=== PATIENT | male | born 1980 | race Two or more races ===

== ENCOUNTER 2016-11-12 13:09 | Inpatient (IN) | payer MEDICAID ==
[2016-11-12] VITALS (7 sets, daily range): BP systolic 106–131; BP diastolic 55–88
[~2016-11-12] VITALS: Ht 165.1 cm; Wt 59.4 kg
[2016-11-12] MEDS ORDERED: TIVICAY50 MG ORAL (13:10)
[2016-11-12] MEDS ORDERED: AZITHROMYC200 MG/5 M ORAL (13:10)
[2016-11-12] MEDS ORDERED: ATOVAQUONE-PRO1 EAC1 ORAL (13:10)
--- NOTE | 2016-11-12 13:31 | Emergency Room Report ---
History of Present Illness General Chief Complaint: Gastrointestinal Bleed Source: Patient Present Illness HPI [id number] BIBEMS for abd pain and dark stools for 2 weeks. Pain with bowel movement. Now constipated. Denies nausea/vomiting, diarrhea, fever/chills Not taking NSAIDS [facility] X[facility] for multiple day admission Had colonoscopy and endoscopy. States had some kind of procedure/biopsy to rectum. Doesnt have result. Also had CTAP, doesnt know result Has suprapubic pain. Unable to urinate, only "small amount comes out." Has HIV/AIDS. On Azitrho and Atovaquone PPx. Likely severely immune compromised. Allergies: Coded Allergies: No Known Allergies (Unverified , 11/12/16) Patient History Past Medical History: HIV Past Surgical History: other - Rectal biopsy/surgery? Pertinent Family History: none Social History: Denies: smoking, alcohol use, drug use Immunizations: UTD Reviewed Nursing Documentation: PMH: Agreed, PSxH: Agreed Review of Systems All Other Systems: negative except mentioned in HPI Physical Exam Vital Signs Date Time Temp Pulse Resp B/P (MAP) Pulse Ox O2 Delivery O2 Flow Rate FiO2 11/12/16 13:06 97.5 116 18 119/97 Room Air Sp02 EP Interpretation: reviewed, normal General Appearance: normal inspection, well appearing, no apparent distress, alert, GCS 15, non-toxic Head: normocephalic, atraumatic Eyes: bilateral eye PERRL, bilateral eye EOMI ENT: normal ENT inspection, hearing grossly normal, normal voice Neck: normal inspection, full range of motion, supple, no bony tend Respiratory: normal inspection, lungs clear, normal breath sounds, no respiratory distress, no retraction, no wheezing Cardiovascular #1: regular rate, rhythm, no edema Gastrointestinal: normal inspection, normal bowel sounds, non tender, soft, no guarding, no hernia Rectal: other - Anus/rectum is very dilated, edematous with stool seen inside. No active hemorrhage Genitourinary: no CVA tenderness, other - Bedside sono shows severely distended bladder Musculoskeletal: normal inspection, back normal, normal range of motion, Tommy' s Sign negative Neurologic: normal inspection, alert, oriented x3, responsive, peer health promoter III-XII nml as tested, motor strength/tone normal, speech normal Psychiatric: normal inspection, judgement/insight normal, mood/affect normal Skin: normal inspection, normal color, no rash Medical Decision Making Diagnostic Impression: Primary Impression: Gastrointestinal hemorrhage Qualified Codes: K92.1 - Melena Additional Impressions: Urinary retention Urinary (tract) obstruction Suprapubic abdominal pain Constipation Qualified Codes: K59.00 - Constipation, unspecified HIV disease ER Course Distended bladder likely d/t rectal impactation/dilation No active hemorrhage VS with tachycardia Likely AIDS given the PPx meds he is on Labs: H&H stable. CMP and Abd CT pending at time of endorsement to Dr Warren for ultimate disposition after review of imaging and consult with GI/Gen Surg. EKG Diagnostic Results Rate: normal Rhythm: NSR ST Segments: no acute changes Rhythm Strip Diag. Results EP Interpretation: yes Rate: 95 Rhythm: NSR, no PVC's, no ectopy Chest X-Ray Diagnostic Results Chest X-Ray Diagnostic Results : Chest X-Ray Ordered: Yes # of Views/Limited/Complete: 1 View Indication: Other - GI bleed EP Interpretation: Yes Interpretation: no consolidation, no effusion, no pneumothorax, no acute cardiopulmonary disease Impression: No acute disease Interpreting ER Provider: Dr Obdulio Rodriguez MD Last Vital Signs Date Time Temp Pulse Resp B/P (MAP) Pulse Ox O2 Delivery O2 Flow Rate FiO2 11/12/16 13:06 97.5 116 18 119/97 Room Air Status: improved Disposition: ADMITTED INPATIENT Condition: Serious OBDULIO RODRIGUEZ M.D. Nov 12, 2016 13:31
[2016-11-12 13:51] LABS: BASOPHILS % (AUTO) 1.4 % (0.0-2.0); EOSINOPHILS % (AUTO) 5.2 % (0.0-3.0); LYMPHOCYTES % (AUTO) 38.6 % (20.0-45.0); MEAN CORPUSCULAR HEMOGLOBIN 26.3 PG (27.0-31.0); MEAN CORPUSCULAR HGB CONC 30.7 G/DL (32.0-36.0); MEAN CORPUSCULAR VOLUME 86 FL (80-99); MEAN PLATELET VOLUME 4.9 FL (6.5-10.1); MONOCYTES % (AUTO) 5.5 % (1.0-10.0); NEUTROPHILS % (AUTO) 49.3 % (45.0-75.0); PLATELET COUNT 563 K/UL (150-450); RED BLOOD COUNT 3.68 M/UL (4.70-6.10); RED CELL DISTRIBUTION WIDTH 12.5 % (11.6-14.8); WHITE BLOOD COUNT 7.6 K/UL (4.8-10.8)
[2016-11-12 13:58] LABS: INR 0.9 (0.9-1.1); PROTHROMBIN TIME 9.6 SEC (9.30-11.50)
[2016-11-12 13:59] LABS: ALANINE AMINOTRANSFERASE 14 U/L (3-41); ALBUMIN/GLOBULIN RATIO 0.8 (1.0-2.7); ANION GAP 15 (5-15); ASPARTATE AMINO TRANSFERASE 24 U/L (5-40); CALCIUM 9.6 mg/dL (8.6-10.2); CARBON DIOXIDE 18 mEQ/L (20-30); CHLORIDE 102 mEQ/L (98-107); CREATININE 1.3 mg/dL (0.7-1.2); GLOMERULAR FILTRATION RATE > 60 mL/min (>60); HEMOLYSIS 19; LIPASE 83 U/L (< 60); POTASSIUM 4.2 mEQ/L (3.4-4.9); SODIUM 135 mEQ/L (135-145); TOTAL PROTEIN 8.7 g/dL (6.6-8.7)
[2016-11-12 14:26] LABS: APPEARANCE,URINE CLEAR; KETONES,URINE NEGATIVE (NEGATIVE); LEUKOCYTE ESTERASE ,URINE NEGATIVE (NEGATIVE); NITRITE,URINE NEGATIVE (NEGATIVE); PH,URINE 6 (4.5-8.0); PROTEIN,URINE 2+ (NEGATIVE); UROBILINOGEN,URINE NORMAL MG/DL (0.0-1.0)
[2016-11-12 14:34] LABS: BACTERIA,URINE OCCASIONAL /HPF; RBC,URINE 0-2 /HPF (0 - 0); SQUAMOUS EPITHELIAL CELL,UR OCCASIONAL /LPF (NONE/OCC); WBC,URINE 0-2 /HPF (0 - 0)
[2016-11-12] MEDS ORDERED: Morphine Sulfate 2mg/ml Inj IVP ONE ×2 (15:15→20:45)
[2016-11-12] MEDS ORDERED: Ketorolac 30mg Inj IV ONE (15:15)
[2016-11-12] MEDS ORDERED: DOXYCYCLINE MO100 MG ORAL (20:29)
[2016-11-12] MEDS ORDERED: TRUVADA 200 MG1 EAC1 ORAL (20:29)
[2016-11-12] MEDS ORDERED: DESCOVY 200-251 EACH PO (20:29)
[2016-11-12] MEDS ORDERED: Zolpidem 5mg tab ORAL PRN (21:45)
[2016-11-12] MEDS ORDERED: HYDROmorphone 1mg/ml Carpuject IVP PRN (21:45)
[2016-11-12] MEDS: Miralax 17gm pkt ORAL SCH (22:04)
[2016-11-12] MEDS: D5 1/2NS 1,000 ML IV SCH (22:07)
[2016-11-12] MEDS: Heparin 5000 units/ml inj SUBQ SCH (22:07)
[2016-11-13 03:55] VITALS: BP 117/73
[2016-11-13 07:50] VITALS: BP 111/65
[2016-11-13 07:50] LABS: BASOPHILS % (AUTO) 2.5 % (0.0-2.0); EOSINOPHILS % (AUTO) 5.3 % (0.0-3.0); LYMPHOCYTES % (AUTO) 30.7 % (20.0-45.0); MEAN CORPUSCULAR HEMOGLOBIN 27.2 PG (27.0-31.0); MEAN CORPUSCULAR HGB CONC 31.3 G/DL (32.0-36.0); MEAN CORPUSCULAR VOLUME 87 FL (80-99); MONOCYTES % (AUTO) 8.1 % (1.0-10.0); NEUTROPHILS % (AUTO) 53.4 % (45.0-75.0); PLATELET COUNT 502 K/UL (150-450); RED BLOOD COUNT 3.16 M/UL (4.70-6.10); RED CELL DISTRIBUTION WIDTH 12.6 % (11.6-14.8); WHITE BLOOD COUNT 9.4 K/UL (4.8-10.8)
[2016-11-13 07:54] LABS: CALCIUM 9.4 mg/dL (8.6-10.2); CREATININE 1.5 mg/dL (0.7-1.2); GLOMERULAR FILTRATION RATE 53.6 mL/min (>60); POTASSIUM 4.3 mEQ/L (3.4-4.9)
[2016-11-13] MEDS: Heparin 5000 units/ml inj SUBQ SCH (09:00)
[2016-11-13] MEDS: Miralax 17gm pkt ORAL SCH ×3 (09:57→17:20)
[2016-11-13 11:38] VITALS: BP 102/64
[2016-11-13] MEDS: D5 1/2NS 1,000 ML IV SCH ×2 (11:50→20:41)
[2016-11-13] MEDS ORDERED: Dolutegravir Sodium 50mg tab ORAL SCH (12:30)
--- NOTE | 2016-11-13 12:30 | History & Physical ---
History and Physical History & Physicial HP dictated # [id number] SARAN LEW Nov 13, 2016 12:30
[2016-11-13 15:23] VITALS: BP 113/65
[2016-11-13 19:57] VITALS: BP 109/61
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
[2016-11-14 00:14] VITALS: BP 112/57
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
[2016-11-14 04:04] VITALS: BP 108/62
[2016-11-14 07:31] LABS: BASOPHILS % (AUTO) 1.4 % (0.0-2.0); EOSINOPHILS % (AUTO) 4.5 % (0.0-3.0); LYMPHOCYTES % (AUTO) 27.7 % (20.0-45.0); MEAN CORPUSCULAR HEMOGLOBIN 28.8 PG (27.0-31.0); MEAN CORPUSCULAR HGB CONC 32.8 G/DL (32.0-36.0); MEAN CORPUSCULAR VOLUME 88 FL (80-99); MEAN PLATELET VOLUME 5.2 FL (6.5-10.1); MONOCYTES % (AUTO) 6.3 % (1.0-10.0); NEUTROPHILS % (AUTO) 60.1 % (45.0-75.0); PLATELET COUNT 428 K/UL (150-450); RED BLOOD COUNT 2.82 M/UL (4.70-6.10); RED CELL DISTRIBUTION WIDTH 12.9 % (11.6-14.8); WHITE BLOOD COUNT 8.1 K/UL (4.8-10.8)
[2016-11-14 08:00] VITALS: BP 103/60
[2016-11-14] MEDS: Miralax 17gm pkt ORAL SCH ×3 (08:20→18:40)
--- NOTE | 2016-11-14 09:46 | General Progress Note ---
Assessment/Plan Problem List: (1) Gastrointestinal hemorrhage ICD Codes: K92.2 - Gastrointestinal hemorrhage, unspecified SNOMED: 57064046 Qualifiers: Qualified Codes: K92.1 - Melena (2) HIV disease ICD Codes: B20 - Human immunodeficiency virus [HIV] disease SNOMED: 35298816 (3) Suprapubic abdominal pain ICD Codes: R10.2 - Pelvic and perineal pain SNOMED: 200370788 (4) Colonic neoplasm ICD Codes: D49.0 - Neoplasm of unspecified behavior of digestive system SNOMED: 472946049 Assessment/Plan transfuse follow labs Oncology consult Discussed with RN Subjective Allergies: Coded Allergies: No Known Allergies (Unverified , 11/12/16) Subjective no more bleed today Objective Last 24 Hour Vital Signs Date Time Temp Pulse Resp B/P (MAP) Pulse Ox O2 Delivery O2 Flow Rate FiO2 11/14/16 08:00 97.5 93 20 103/60 96 Room Air 11/14/16 04:44 98.6 11/14/16 04:04 98.6 90 20 108/62 98 Room Air 11/14/16 04:00 97 11/14/16 00:14 98.4 95 19 112/57 98 Room Air 11/14/16 00:00 83 11/13/16 20:00 88 11/13/16 19:57 98.2 85 20 109/61 96 Room Air 11/13/16 16:00 87 11/13/16 15:23 97.3 87 20 113/65 98 Room Air 11/13/16 12:00 96 11/13/16 11:38 97.7 80 20 102/64 95 Room Air Laboratory Tests 11/14/16 05:05: White Blood Count 8.1, Red Blood Count 2.82L, Hemoglobin 8.1L, Hematocrit 24.8L , Mean Corpuscular Volume 88, Mean Corpuscular Hemoglobin 28.8, Mean Corpuscular Hemoglobin Concent 32.8, Red Cell Distribution Width 12.9, Platelet Count 428, Mean Platelet Volume 5.2L, Neutrophils (%) (Auto) 60.1, Lymphocytes ( %) (Auto) 27.7, Monocytes (%) (Auto) 6.3, Eosinophils (%) (Auto) 4.5H, Basophils (%) (Auto) 1.4 Height (Feet): 5 Height (Inches): 6.00 Weight (Pounds): 132 Cardiovascular: normal rate Respiratory/Chest: lungs clear Abdomen: soft SARAN LEW Nov 14, 2016 09:46
[2016-11-14] MEDS ORDERED: Azithromycin 600mg Tab ORAL SCH (11:00)
[2016-11-14] MEDS: Bactrim SS Tab ORAL SCH (11:28)
[2016-11-14 11:51] VITALS: BP 114/64
[2016-11-14] MEDS: D5 1/2NS 1,000 ML IV SCH (15:12)
[2016-11-14 16:00] VITALS: BP 114/64
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
[2016-11-14] MEDS ORDERED: Dolutegravir Sodium 50mg tab ORAL ONE (18:00)
--- NOTE | 2016-11-14 19:44 | Cardiology Report ---
APPROVED REPORT EKG Measurement Heart [id number] MT 130P9 [id number] Normal sinus rhythm Minimal voltage criteria for LVH, may be normal variant Cannot rule out Anterior infarct, age undetermined Abnormal ECG
[2016-11-14 20:00] VITALS: BP 98/68
[2016-11-15] VITALS: BP 112/61
[2016-11-15] MEDS: D5 1/2NS 1,000 ML IV SCH ×2 (02:43→13:37)
[2016-11-15 04:00] VITALS: BP 107/67
[2016-11-15] MEDS: Bactrim SS Tab ORAL SCH (08:14)
[2016-11-15] MEDS: Miralax 17gm pkt ORAL SCH ×3 (08:14→16:53)
[2016-11-15 08:16] VITALS: BP 117/71
[2016-11-15] MEDS ORDERED: NS 275ml ONE (10:53)
[2016-11-15] MEDS ORDERED: Tubing IV Blood Pump IV ONE (10:53)
[2016-11-15] MEDS ORDERED: D5 1/2NS 1000ml IV ONE (10:53)
[2016-11-15 11:13] LABS: EOSINOPHILS % (AUTO) 3.9 % (0.0-3.0); LYMPHOCYTES % (AUTO) 28.9 % (20.0-45.0); MEAN CORPUSCULAR HEMOGLOBIN 25.9 PG (27.0-31.0); MEAN CORPUSCULAR HGB CONC 30.4 G/DL (32.0-36.0); MEAN CORPUSCULAR VOLUME 85 FL (80-99); MEAN PLATELET VOLUME 4.7 FL (6.5-10.1); MONOCYTES % (AUTO) 8.2 % (1.0-10.0); PLATELET COUNT 480 K/UL (150-450); RED BLOOD COUNT 3.71 M/UL (4.70-6.10); RED CELL DISTRIBUTION WIDTH 13.1 % (11.6-14.8); WHITE BLOOD COUNT 7.7 K/UL (4.8-10.8)
--- NOTE | 2016-11-15 11:48 | Infectious Diseases Prog Note ---
Assessment/Plan Assessment/Plan A; HIV, AIDS Lower GI bleeding Rectal tumor, likely lymphoma Anemia Acute renal failure P; continue HAART & Bactrim & Zithromax prophylaxis Plan by oncologist Subjective ROS Limited/Unobtainable: Yes Allergies: Coded Allergies: No Known Allergies (Unverified , 11/12/16) Objective Vital Signs Last 24 Hour Vital Signs Date Time Temp Pulse Resp B/P (MAP) Pulse Ox O2 Delivery O2 Flow Rate FiO2 11/15/16 11:25 96.9 11/15/16 08:16 96.9 72 20 117/71 98 Room Air 11/15/16 08:00 95 11/15/16 04:00 97.7 96 20 107/67 95 Room Air 96 11/15/16 04:00 95 11/15/16 00:00 96.0 92 20 112/61 95 Room Air 11/15/16 00:00 90 11/14/16 20:00 97.0 88 22 98/68 94 Room Air 11/14/16 20:00 95 11/14/16 16:00 83 11/14/16 16:00 97.5 89 20 114/64 96 Room Air 11/14/16 12:00 94 11/14/16 11:51 97.3 95 21 114/64 97 Room Air Height (Feet): 5 Height (Inches): 6.00 Weight (Pounds): 132 General Appearance: no acute distress HEENT: mucous membranes moist Respiratory/Chest: lungs clear Cardiovascular: normal rate Abdomen: soft, non tender Extremities: no edema Neurologic/Psychiatric: other - sleeping Microbiology Date/Time Source Procedure Growth Status 11/12/16 20:10 Nasal Nares MRSA Culture - Final NO METHICILLIN RESISTANT STAPH AUREUS... Complete Laboratory Tests Test 11/15/16 11:05 White Blood Count 7.7 K/UL (4.8-10.8) Red Blood Count 3.71 M/UL (4.70-6.10) L Hemoglobin 9.6 G/DL (14.2-18.0) L Hematocrit 31.6 % (42.0-52.0) L Mean Corpuscular Volume 85 FL (80-99) Mean Corpuscular Hemoglobin 25.9 PG (27.0-31.0) L Mean Corpuscular Hemoglobin Concent 30.4 G/DL (32.0-36.0) L Red Cell Distribution Width 13.1 % (11.6-14.8) Platelet Count 480 K/UL (150-450) H Mean Platelet Volume 4.7 FL (6.5-10.1) L Neutrophils (%) (Auto) 58.0 % (45.0-75.0) Lymphocytes (%) (Auto) 28.9 % (20.0-45.0) Monocytes (%) (Auto) 8.2 % (1.0-10.0) Eosinophils (%) (Auto) 3.9 % (0.0-3.0) H Basophils (%) (Auto) 1.0 % (0.0-2.0) Sodium Level Pending Potassium Level Pending Chloride Level Pending Carbon Dioxide Level Pending Blood Urea Nitrogen Pending Creatinine Pending Estimat Glomerular Filtration Rate Pending Glucose Level Pending Calcium Level Pending Current Medications Medications (Trade) Dose Ordered Sig/Elliot Route PRN Reason Start Time Stop Time Status Last Admin Dose Admin Azithromycin (Zithromax) 1,200 mg ONCE A WEEK ORAL 11/14/16 11:00 11/21/16 10:59 11/14/16 12:03 Dextrose (Dextrose 50%) STAT PRN IV Hypoglycemia 11/12/16 21:45 12/12/16 21:44 Dextrose/Sodium Chloride 1,000 ml @ 75 mls/hr [id number] IV 11/12/16 22:35 12/12/16 22:34 11/14/16 15:12 Diphenhydramine HCl (Benadryl) 25 mg Q6H PRN ORAL Itching/Pruritis 11/12/16 21:45 12/12/16 21:44 Dolutegravir Sodium (Tivicay) 50 mg DAILY ORAL 11/13/16 12:30 12/13/16 12:29 UNV Emtricitabine/ Tenofovir (Truvada 200/ 300mg) 1 tab DAILY ORAL 11/13/16 12:30 12/13/16 12:29 UNV Hydromorphone HCl (Dilaudid) 1 mg EVERY 3 HOURS PRN IVP Moderate Pain (Pain Scale 4-6) 11/12/16 21:45 11/19/16 21:44 Hydromorphone HCl (Dilaudid) 2 mg EVERY 3 HOURS PRN IVP Severe Pain (Pain Scale 7-10) 11/12/16 21:45 11/19/16 21:44 11/15/16 10:52 Ondansetron HCl (Zofran) 4 mg Q6H PRN IVP Nausea & Vomiting 11/12/16 21:45 12/12/16 21:44 11/15/16 10:52 Polyethylene Glycol (Miralax) 17 gm TID ORAL 11/12/16 21:45 12/12/16 21:44 11/15/16 08:14 Ranitidine HCl (Zantac) 150 mg TWICE A DAY ORAL 11/12/16 21:45 12/12/16 21:44 11/15/16 08:13 Trimethoprim/ Sulfamethoxazole (Bactrim Single Strength) 1 ea DAILY ORAL 11/14/16 11:00 11/21/16 10:59 11/15/16 08:14 Zolpidem Tartrate (Ambien) 5 mg HSPRN PRN ORAL Insomnia 11/12/16 21:45 11/19/16 21:44 MILLIE LEW Nov 15, 2016 11:48
[2016-11-15 11:49] LABS: ANION GAP 11 (5-15); CARBON DIOXIDE 26 mEQ/L (20-30); CHLORIDE 100 mEQ/L (98-107); CREATININE 1.3 mg/dL (0.7-1.2); GLOMERULAR FILTRATION RATE > 60 mL/min (>60); HEMOLYSIS 1; POTASSIUM 3.8 mEQ/L (3.4-4.9); SODIUM 137 mEQ/L (135-145)
[2016-11-15 12:00] VITALS: BP 112/66
--- NOTE | 2016-11-15 12:40 | General Progress Note ---
Assessment/Plan Problem List: (1) Gastrointestinal hemorrhage ICD Codes: K92.2 - Gastrointestinal hemorrhage, unspecified SNOMED: [id number] Qualifiers: Qualified Codes: K92.1 - Melena (2) HIV disease ICD Codes: B20 - Human immunodeficiency virus [HIV] disease SNOMED: 77127275 (3) Suprapubic abdominal pain ICD Codes: R10.2 - Pelvic and perineal pain SNOMED: 993976449 (4) Colonic neoplasm ICD Codes: D49.0 - Neoplasm of unspecified behavior of digestive system SNOMED: 187324875 Assessment/Plan transfuse PRN follow labs Oncology consult Hopefully DC in AM Subjective Allergies: Coded Allergies: No Known Allergies (Unverified , 11/12/16) Subjective In NAD Objective Last 24 Hour Vital Signs Date Time Temp Pulse Resp B/P (MAP) Pulse Ox O2 Delivery O2 Flow Rate FiO2 11/15/16 11:25 96.9 11/15/16 08:16 96.9 72 20 117/71 98 Room Air 11/15/16 08:00 95 11/15/16 04:00 97.7 96 20 107/67 95 Room Air 96 11/15/16 04:00 95 11/15/16 00:00 96.0 92 20 112/61 95 Room Air 11/15/16 00:00 90 11/14/16 20:00 97.0 88 22 98/68 94 Room Air 11/14/16 20:00 95 11/14/16 16:00 83 11/14/16 16:00 97.5 89 20 114/64 96 Room Air Intake and Output 11/15/16 11/16/16 19:00 07:00 Intake Total 300 ml Balance 300 ml IV Total 300 ml Laboratory Tests 11/15/16 11:05: White Blood Count 7.7, Red Blood Count 3.71L, Hemoglobin 9.6L, Hematocrit 31.6L , Mean Corpuscular Volume 85, Mean Corpuscular Hemoglobin 25.9L, Mean Corpuscular Hemoglobin Concent 30.4L, Red Cell Distribution Width 13.1, Platelet Count 480H, Mean Platelet Volume 4.7L, Neutrophils (%) (Auto) 58.0, Lymphocytes (%) (Auto) 28.9, Monocytes (%) (Auto) 8.2, Eosinophils (%) (Auto) 3.9H, Basophils (%) (Auto) 1.0, Sodium Level 137, Potassium Level 3.8, Chloride Level 100, Carbon Dioxide Level 26, Anion Gap 11, Blood Urea Nitrogen 11, Creatinine 1.3H, Estimat Glomerular Filtration Rate > 60, Glucose Level 109H, Calcium Level 9.0 Height (Feet): 5 Height (Inches): 6.00 Weight (Pounds): 132 Cardiovascular: normal rate Respiratory/Chest: lungs clear Abdomen: soft SARAN LEW Nov 15, 2016 12:40
[2016-11-15 16:53] VITALS: BP 110/60
[2016-11-15 19:08] LABS: BASOPHILS % (AUTO) 1.1 % (0.0-2.0); EOSINOPHILS % (AUTO) 4.7 % (0.0-3.0); LYMPHOCYTES % (AUTO) 31.6 % (20.0-45.0); MEAN CORPUSCULAR HEMOGLOBIN 27.7 PG (27.0-31.0); MEAN CORPUSCULAR HGB CONC 32.4 G/DL (32.0-36.0); MEAN CORPUSCULAR VOLUME 86 FL (80-99); MEAN PLATELET VOLUME 4.8 FL (6.5-10.1); MONOCYTES % (AUTO) 7.7 % (1.0-10.0); NEUTROPHILS % (AUTO) 54.9 % (45.0-75.0); PLATELET COUNT 434 K/UL (150-450); RED CELL DISTRIBUTION WIDTH 13.4 % (11.6-14.8)
[2016-11-15 20:00] VITALS: BP 116/67
[2016-11-15] MEDS ORDERED: Magnesium Citrate Liq Btl ORAL ONE (20:30)
[2016-11-15] MEDS ORDERED: Dolutegravir Sodium 50mg tab ORAL ONE (23:00)
[2016-11-16] VITALS: BP 133/74
[2016-11-16 04:00] VITALS: BP 111/60
[2016-11-16] MEDS: D5 1/2NS 1,000 ML IV SCH ×3 (06:43→07:01)
[2016-11-16 08:00] VITALS: BP 130/82
[2016-11-16 08:27] LABS: BASOPHILS % (AUTO) 0.8 % (0.0-2.0); EOSINOPHILS % (AUTO) 2.3 % (0.0-3.0); MEAN CORPUSCULAR HEMOGLOBIN 27.3 PG (27.0-31.0); MEAN CORPUSCULAR HGB CONC 31.9 G/DL (32.0-36.0); MEAN CORPUSCULAR VOLUME 86 FL (80-99); MEAN PLATELET VOLUME 5.3 FL (6.5-10.1); MONOCYTES % (AUTO) 5.4 % (1.0-10.0); NEUTROPHILS % (AUTO) 67.5 % (45.0-75.0); PLATELET COUNT 460 K/UL (150-450); RED BLOOD COUNT 3.54 M/UL (4.70-6.10); RED CELL DISTRIBUTION WIDTH 13.1 % (11.6-14.8); WHITE BLOOD COUNT 9.6 K/UL (4.8-10.8)
[2016-11-16 08:58] LABS: CALCIUM 9.6 mg/dL (8.6-10.2); CREATININE 1.6 mg/dL (0.7-1.2); GLOMERULAR FILTRATION RATE 49.7 mL/min (>60); POTASSIUM 4.3 mEQ/L (3.4-4.9)
[2016-11-16] MEDS: Bactrim SS Tab ORAL SCH (09:00)
[2016-11-16] MEDS: Miralax 17gm pkt ORAL SCH (09:00)
[2016-11-16] MEDS ORDERED: D5 1/2NS 1000ml IV ONE (10:48)
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
--- NOTE | 2016-11-17 17:15 | Discharge Summary ---
Discharge Summary Hospital Course Date of Admission Nov 12, 2016 at 13:51 Date of Discharge Nov 16, 2016 at 10:49 Admitting Diagnosis LOWER G.I.BLEED HPI Ronny Holland is a 36 year old male who was admitted on Nov 12, 2016 at 13:51 for Lower Gastrointestinal Bleed Hospital Course [id number] Discharge Discharge Disposition Patient left AMA Discharge Diagnoses: Carol Mcgarry NP Nov 17, 2016 17:15
--- NOTE | 2016-11-18 00:30 | Discharge Summary 2 SIG ---
DATE OF ADMISSION: 11/12/2016 DATE OF DISCHARGE: 11/16/2016 CONSULTANTS: 1. Pawel Summers M.D. 2. Christopher López M.D. 3. Eli Colbert M.D. BRIEF HOSPITAL COURSE: The patient is a 36-year-old male with history of HIV for the past 14 years, presented to ED complaining of abdominal pain and also blood in stools for a couple of weeks. He had a CAT scan of the abdomen at [facility]. CT scan done, showed 8 x 7 x 19 homogenous soft tissue density in the presacral region, which is complex and appears to involve the rectum. Soft tissue density extends superiorly into the abdominal retroperitoneum, which is contiguous with large retroperitoneal lymph nodes, some of which encased the distal ureter, inferior vena cava, and common iliac vessel, left more than right. Soft tissue density also extends left anterolaterally and is contiguous with left internal and external iliac lymphadenopathy. Findings were consistent with a neoplastic process probably lymphoid in origin. There was also mild left hydronephrosis secondary to compression of the proximal left ureter by the retroperitoneal lymphadenopathy and a presence of 1.4 cm metallic foreign body within the anteroinferior right pelvic area. He was admitted for abdominal pain with blood in the stool. He was started on clear liquid. Surgical consultation was obtained and recommended the patient would require Gastroenterology and Oncology consult. Last CD4 count was 20. He was continued on his HIV medications and was given Bactrim and Zithromax for prophylaxis. He had 2 units packed RBC transfused. He was also offered to undergo sigmoidoscopy to evaluate and treat the source of bleeding. However, full treatment was not carried out as the patient signed out against medical advice. FINAL DIAGNOSES: 1. Acute gastrointestinal hemorrhage. 2. Human immunodeficiency virus disease. 3. Suprapubic abdominal pain. 4. Colonic neoplasm. 5. Acute anemia, requiring blood transfusion. DISPOSITION: The patient left AMA. Luiz López M.D. I have been assigned to dictate discharge summary on this account and I was not involved in the patient's management. Carol Mcgarry N.P. DR: Kapil JOB#: [id number] CC:
== END 2016-11-16 10:49 | disposition left against medical advice (07) | DRG 254 ==
LOC: EDBD 13:09 → EMR 13:27 → 2E 13:51 → EDBEDREQ 15:29 → 2E 17:02
PROC: 30233N1 Transfusion of Nonautologous Red Blood Cells into Peripheral Vein, Percutaneous Approach (ICD-10-PCS; principal; 2016-11-14)
DX: D49.0 Neoplasm of unspecified behavior of digestive system (principal); N17.9 Acute kidney failure, unspecified; B20 Human immunodeficiency virus [HIV] disease; C77.2 Secondary and unspecified malignant neoplasm of intra-abdominal lymph nodes; Z53.21 Procedure and treatment not carried out due to patient leaving prior to being seen by health care provider; Z72.0 Tobacco use; D50.0 Iron deficiency anemia secondary to blood loss (chronic)
CPT/HCPCS: 36415; 80048; 80053; 81003; 83690; 85025; 85610; 85730; 86850; 86900; 86901; 86920; 87081; 93005; 99285; J2405